=== PATIENT | male | born 1970 | race Caucasian/White ===

== ENCOUNTER 2016-11-07 14:51 | Inpatient (IN) | payer OTHER ==
[2016-11-07 15:51] LABS: Hematocrit 48 % (42-52); Hemoglobin 16.3 g/dl (14.0-18.0); Mean Corpuscular HGB Conc 34 g/dl (31-36); Mean Corpuscular Hemoglobin 30 pg (27-31); Mean Corpuscular Volume 89 fL (80-94); Mean Platelet Volume 8 um3 (7.4-10.4); Red Blood Count 5.37 10^6/ul (4.0-5.4); Red Cell Distribution Width 13 % (10.5-15); White Blood Count 11.9 10^3/ul (3.5-10.8)
[2016-11-07 16:08] LABS: ALT 44 U/L (7-52); AST 33 U/L (13-39); Albumin 4.4 g/dL (3.2-5.2); Alkaline Phosphatase 54 U/L (34-104); Anion Gap 7 mmol/L (2-11); BUN/Creatinine Ratio 12.4 (8-20); Blood Urea Nitrogen 13 mg/dL (6-24); CO2 Carbon Dioxide 26 mmol/L (22-32); Calcium 9.4 mg/dL (8.6-10.3); Chloride 103 mmol/L (101-111); EGFR African American 98.2 (>60); EGFR Non-African American 76.4 (>60); Globulin 2.8 g/dL (2-4); Glucose 103 mg/dL (70-100); Potassium 4.2 mmol/L (3.5-5.0); Sodium 136 mmol/L (133-145); Total Protein 7.2 g/dL (6.4-8.9)
[2016-11-07 16:27] LABS: Urine Bilirubin Negative (Negative); Urine Glucose Negative (Negative); Urine Nitrite Negative (Negative)
[2016-11-07 16:32] LABS: Acetaminophen < 15 mcg/mL; Alcohol < 10 mg/dL (<10); Salicylate < 2.50 mg/dL (<30)
[2016-11-07 16:37] LABS: Benzodiazepine Urine Screen None Detected (None Detect)
[2016-11-07 16:41] LABS: TSH (Thyroid Stimulating Horm) 1.45 mcIU/mL (0.34-5.60)
--- NOTE | 2016-11-07 19:00 | CONSULT ---
Consult Consult: Mental health is requesting some documentation on the patient, signed out by Brian Jolley 46M with no psych PMH presents with marital issues. He has been having issues communicating with his . His has a PMH of mental illness. Today he said he was going to take a break and "Wanted to end it" she took that has his life and called the furniture builder. He denies any SI/HI ideations. No previous hospitalizations or history of substance abuse. Medical clear for MHE Diagnosis: Mood disorder Condition: stable Disposition: Admit to [facility] [place]
[2016-11-07] MEDS ORDERED: LORazepam INJ* 2 MG/ML 1 ML VIAL ONE (21:10)
[2016-11-07] MEDS ORDERED: Haloperidol INJ IV/IM* 5 MG/ML AMP ONE (21:10)
[2016-11-07] MEDS ORDERED: diPHENhydraMINE IV* 50 MG/ML 1 ml VIAL (BENADRYL) ONE (21:10)
[2016-11-07] MEDS ORDERED: Al Hydrox/Mg Hydrox/Simet LIQ* 30 ML UDC PO PRN (22:03)
[2016-11-07] MEDS ORDERED: Acetaminophen TAB* 325 MG PO PRN (22:03)
[2016-11-07] MEDS ORDERED: traZODone TAB* 50 MG TAB PO PRN (22:04)
[2016-11-08 08:20] VITALS: BP 153/92
[2016-11-08] MEDS ORDERED: Vitamin THERAPEUTIC TAB PO SCH (09:00)
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
== END 2016-11-08 17:35 | DRG 753 ==
LOC: ED 14:51 → BSU 22:08
PROVIDERS: ADMIT Psychiatry & Neurology Psychiatry; ATTEND Psychiatry & Neurology Psychiatry
DX: F39 Unspecified mood [affective] disorder (principal); E66.3 Overweight; F32.89 Other specified depressive episodes; Z68.34 Body mass index [BMI] 34.0-34.9, adult
CPT/HCPCS: 36415; 80053; 80307; 80320; 80329; 81003; 84443; 85025; 99238; G0480; J1200; J1630; J2060